=== PATIENT | male | born 1990 | race Asian ===

== ENCOUNTER 2017-07-01 12:20 | Emergency (ER) | payer OTHER ==
[2017-07-01 13:03] VITALS: BP 119/76; PULSE 97; TEMP 98.6; BMI 18.8
[2017-07-01] MEDS ORDERED: ONDANSETRON 4 MG/2 ML VIAL IVPUSH ONE (13:05)
[2017-07-01] MEDS ORDERED: FOLIC ACID INJECTION - 1 MG, THIAMINE HCL 100 MG, MULTIVIT INJECTION ADULT 10 ML in SOD... IVPB ONE (13:05)
[2017-07-01] MEDS ORDERED: diazePAM CARPU-JECT 10 MG/2 ML DISP.SYRIN IVPUSH ONE (13:06)
--- NOTE | 2017-07-01 13:14 | PDOC ---
History of Present Illness - General Chief Complaint: Alcohol intoxication Stated Complaint: DETOX Time Seen by Provider: 07/01/17 12:57 History Source: Patient - History of Present Illness Timing/Duration: other (this am) Severity: severe Associated Symptoms: reports: nausea/vomiting, weakness. denies: cough, fever/ chills, shortness of breath Past History - Past Medical History Allergies/Adverse Reactions: Allergies Allergy/AdvReac Type Severity Reaction Status Date / Time No Known Allergies Allergy Verified 07/01/17 13:03 Other medical history: alcohol abuse - Suicide/Smoking/Psychosocial Hx Smoking History: Former smoker Have you smoked in the past 12 months: No Number of Cigarettes Smoked Daily: 0 If you are a former smoker, when did you quit?: 2015 Information on smoking cessation initiated: No Hx Alcohol Use: Yes (lots of alcohol) Drug/Substance Use Hx: Yes (marijuana) Substance Use Type: None Review of Systems - Review of Systems Constitutional: No: Chills, Fever Respiratory: No: Shortness of Breath Cardiac (ROS): Yes: Lightheadedness. No: Chest Pain ABD/GI: Yes: Blood Streaked Bowels, Vomiting. No: Constipated, Abdominal cramping Neurological: Yes: Dizziness. No: Headache *Physical Exam - Vital Signs Last Vital Signs Temp Pulse Resp BP Pulse Ox 98.6 F 97 H 26 H 119/76 100 07/01/17 12:20 07/01/17 12:20 07/01/17 12:20 07/01/17 12:20 07/01/17 12:20 - Physical Exam Comments: 07/01/17 13:15 Appears lethargic No tremors 07/01/17 16:05 General Appearance: Yes: Appropriately Dressed HEENT: positive: Normal Voice Neck: positive: Supple Respiratory/Chest: negative: Respiratory Distress Cardiovascular: positive: Regular Rate, S1, S2 Gastrointestinal/Abdominal: positive: Soft. negative: Tender Extremity: positive: Normal Inspection Integumentary: positive: Dry, Warm Neurologic: positive: Fully Oriented ED Treatment Course - LABORATORY CBC & Chemistry Diagram: 07/01/17 13:00 07/01/17 13:00 Medical Decision Making - Medical Decision Making 07/01/17 13:09 26-year-old male history of anxiety, depression, alcohol abuse, daily marijuana use, here with malaise w/ dizziness, weakness, nausea, vomiting that started this a.m. Patient states he does not ingest alcohol every day, but does drink a significant amount of beer per week and states last alcoholic intake was night before last. States last night marijuana this a.m. Denies tremors, abd pain, hematemesis, change in BM, dysuria, n/v. No SI/HI See exam Possible ETOH withdrawal vs cyclical vomiting syndrome 2/2 daily cannabis use -zofran -valium -IVF -labs -reassess 07/01/17 15:09 Pt appears much more comfortable and reports feeling significantly better at this time. Able to anival po. Ambulating to restroom to collect urine at this time 07/01/17 15:22 07/01/17 15:25 07/01/17 16:04 Labs unremarkable. Pt requesting discharge. Refuses detox/mental health resources as offered by our case operator. Stable for discharge at this time 07/01/17 16:05 07/01/17 16:08 07/01/17 16:08 *DC/Admit/Observation/Transfer Diagnosis at time of Disposition: Malaise Nausea & vomiting Qualifiers: Vomiting type: unspecified Vomiting Intractability: non-intractable Qualified Code(s): R11.2 - Nausea with vomiting, unspecified - Discharge Dispostion Disposition: HOME Condition at time of disposition: Improved - Referrals Referrals: Odin Baker MD [Primary Care Provider] - - Patient Instructions Printed Discharge Instructions: DI for Alcohol Abuse Additional Instructions: Strongly consider alcohol cessation and consider a detox facility and following up with a mental health provider A list of resources were offered but declined by you Please follow-up with your PMD
[2017-07-01] MEDS ORDERED: diazePAM 5 MG TABLET ONE (13:26)
[2017-07-01] MEDS ORDERED: ONDANSETRON 4 MG/2 ML VIAL ONE (13:26)
[2017-07-01] MEDS ORDERED: diazePAM 5 MG TABLET PO ONE (13:36)
[2017-07-01 13:42] LABS: BASOPHIL 0.1 % (0-2.0); EOSINOPHIL 0.2 % (0-4.5); MCH 30.7 pg (25.7-33.7); MEAN CELL VOLUME 90.2 fl (80-96); MEAN PLT VOLUME 7.8 fl (7.5-11.1); NEUTROPHILS 91.4 % (42.8-82.8); PLATELET COUNT 199 K/MM3 (134-434); RDW 13.3 % (11.9-15.9); WHITE BLOOD COUNT 9.1 K/mm3 (4.0-10.0)
[2017-07-01 14:01] LABS: ALBUMIN 4.4 g/dl (3.4-5.0); ALK PHOS 72 U/L (45-117); ANION GAP 14 (8-16); CALCIUM 9.2 mg/dL (8.5-10.1); CO2 18 mmol/L (21-32); CREATININE 0.9 mg/dL (0.7-1.3); GLUCOSE,RANDOM 117 mg/dL (74-106); SGOT/AST 20 U/L (15-37); SGPT/ALT 23 U/L (12-78); TOT PROT 7.3 g/dl (6.4-8.2)
[2017-07-01 16:11] LABS: URINE APPEARANCE CLEAR; URINE BILIRUBIN NEGATIVE (NEGATIVE); URINE BLOOD NEGATIVE (NEGATIVE); URINE COLOR YELLOW; URINE GLUCOSE (UA) NEGATIVE (NEGATIVE); URINE KETONE 1+ (NEGATIVE); URINE NITRITE NEGATIVE (NEGATIVE); URINE PROTEIN NEGATIVE (NEGATIVE); URINE UROBILINOGEN NEGATIVE mg/dL (0.2-1.0)
[2017-07-01 20:19] LABS: URINE LEUK ESTERASE Negative (NEGATIVE)
== END 2017-07-01 16:25 | disposition home or self-care (01) ==
LOC: JER 12:20
PROC: 3E033GC Introduction of Other Therapeutic Substance into Peripheral Vein, Percutaneous Approach (ICD-10-PCS; principal; 2017-07-01)
DX: R11.2 Nausea with vomiting, unspecified (principal); F10.10 Alcohol abuse, uncomplicated; F12.10 Cannabis abuse, uncomplicated
CPT/HCPCS: 36415; 80053; 80307; 81003; 83690; 85025; 99281-25